=== PATIENT | male | born 1980 | race Caucasian/White ===

== ENCOUNTER 2025-01-14 13:47 | Emergency (ER) | payer OTHER ==
[~2025-01-14] VITALS: Ht 172.7 cm; Wt 99.8 kg
[2025-01-14] MEDS ORDERED: KETOROLAC TROMETHAMINE 60 MG VIAL IM STA (14:36)
[2025-01-14] MEDS ORDERED: KETOROLAC TROMETHAMINE 60 MG VIAL IM ONE (14:45)
== END 2025-01-14 16:09 | disposition home or self-care (01) ==
LOC: ER 13:47
DX: S20.211A Contusion of right front wall of thorax, initial encounter (principal); V19.9XXA Pedal cyclist (driver) (passenger) injured in unspecified traffic accident, initial encounter; Y93.55 Activity, bike riding; Y92.413 State road as the place of occurrence of the external cause